=== PATIENT | male | born 1950 | race Caucasian/White ===

== ENCOUNTER 2017-09-02 22:29 | Emergency (ER) | payer MEDICARE ==
[~2017-09-02] VITALS: Ht 180.3 cm; Wt 94.8 kg
[2017-09-02 22:30] VITALS: BP 153/69; PULSE 106; RESP 22; TEMP 99.8; O2SAT 92
[2017-09-02 22:51] VITALS: O2SAT 90
[2017-09-02] MEDS ORDERED: SODIUM CHLOR 0.9% 1000 ML INJ 1,000 ML IV ONE (23:00)
[2017-09-02] MEDS ORDERED: ACETAMINOPHEN 325 MG TAB PO ONE (23:00)
[2017-09-02] MEDS ORDERED: SODIUM CHLORIDE 0.9% FLUSH 10 ML FLUSH IVF PRN (23:00)
[2017-09-02] MEDS ORDERED: methylPREDNISolone SOD SUCC 125 MG/2 ML VIAL IV PUSH ONE (23:00)
[2017-09-02] MEDS: RESP: ALBUTEROL 2.5 MG/IPRATROPIUM 0.5 MG NEB (SCH) INH ×3 (23:01→23:21)
[2017-09-02 23:10] VITALS: O2SAT 91
[2017-09-02 23:15] LABS: AUTOMATED NEUTROPHIL # 5.3 TH/MM3 (1.8-7.7); BASOPHIL # 0.1 TH/MM3 (0-0.2); BASOPHIL % 1.7 % (0.0-2.0); EOSINOPHIL % 0.5 % (0.0-4.0); HEMATOCRIT 40.3 % (39.0-51.0); HEMOGLOBIN 12.8 GM/DL (13.0-17.0); LYMPH % 16.1 % (9.0-44.0); LYMPHOCYTE # 1.2 TH/MM3 (1.0-4.8); MEAN CELL VOLUME 90.6 FL (80.0-100.0); MEAN CORPUSCULAR HEMOGLOBIN 28.8 PG (27.0-34.0); MEAN CORPUSCULAR HGB CONC 31.8 % (32.0-36.0); MEAN PLATELET VOLUME 8.1 FL (7.0-11.0); MONO % 9.3 % (0.0-8.0); MONOCYTE # 0.7 TH/MM3 (0-0.9); NEUT % 72.4 % (16.0-70.0); PLATELET COUNT 117 TH/MM3 (150-450); RED BLOOD COUNT 4.45 MIL/MM3 (4.50-5.90); RED CELL DISTRIBUTION WIDTH 14.7 % (11.6-17.2); WHITE BLOOD COUNT 7.4 TH/MM3 (4.0-11.0)
--- NOTE | 2017-09-02 23:25 | RADRPT ---
EXAM DATE/TIME: 09/02/2017 22:57 [facility] COMPARISON: No previous studies available for comparison. INDICATIONS : Right foot pain. MEDICAL HISTORY : None. SURGICAL HISTORY : None. ENCOUNTER: Initial ACUITY: 1 week PAIN SCORE: 4/10 LOCATION: Right foot FINDINGS: Three view examination of the right foot demonstrates no soft tissue swelling, dislocation, or fractu re. The tarsal bones appear intact. The interphalangeal and metatarsophalangeal joints are intact. The calcaneus is intact. Bony mineralization is normal. CONCLUSION: 1. Negative examination of the foot. Jl Flores MD on September 02, 2017 at 23:22 Board Certified Radiologist. This report was verified electronically.
--- NOTE | 2017-09-02 23:25 | RADRPT ---
EXAM DATE/TIME: 09/02/2017 22:57 [facility] COMPARISON: No previous studies available for comparison. INDICATIONS : Shortness of breath. MEDICAL HISTORY : Emphysema. Asthma SURGICAL HISTORY : Cardiac stent. ENCOUNTER: Initial ACUITY: 1 day PAIN SCORE: 0/10 LOCATION: Bilateral chest FINDINGS: The cardiac silhouette is normal in transverse diameter. There is interstitial disease bilaterally of uncertain chronicity though the appearance is more chronic. No pleural effusions are identified. The re is no evidence of pneumonia. CONCLUSION: 1. Probable pulmonary fibrosis. There is no evidence of pneumonia. Jl Flores MD on September 02, 2017 at 23:21 Board Certified Radiologist. This report was verified electronically.
[2017-09-02 23:27] LABS: BLOOD UREA NITROGEN 11 MG/DL (7-18); GLOMERULAR FILTRATION RATE 67 ML/MIN (>89); GLUCOSE,RANDOM 117 MG/DL (74-106); PROTHROMBIN TIME - PATIENT 10.2 SEC (9.8-11.6); SODIUM (NA) 132 MEQ/L (136-145)
[2017-09-02 23:28] LABS: CHLORIDE 93 MEQ/L (98-107)
[2017-09-03 00:08] LABS: ALKALINE PHOSPHATASE 94 U/L (45-117); TOTAL BILIRUBIN ADULT 0.6 MG/DL (0.2-1.0); TOTAL PROTEIN 8.1 GM/DL (6.4-8.2); TROPONIN I LESS THAN 0.02 NG/ML (0.02-0.05)
[2017-09-03 00:11] LABS: ALBUMIN 3.5 GM/DL (3.4-5.0); ALT (GPT) 20 U/L (12-78); BICARBONATE 28.2 MEQ/L (21.0-32.0); CALCIUM 8.7 MG/DL (8.5-10.1)
[2017-09-03 00:13] LABS: AST (GOT) 33 U/L (15-37)
[2017-09-03 00:21] LABS: BANDS 6 % (0-6); BASOPHILS 2 % (0-2); LYMPHOCYTES 25 % (9-44); MONOCYTES 4 % (0-8); NEUTROPHIL # MANUAL DIFF 5.1 TH/MM3 (1.8-7.7); POLYS (SEG NEUTROPHILS) 63 % (16-70)
[2017-09-03 00:24] VITALS: BP 122/65; PULSE 98; RESP 18; TEMP 98.7; O2SAT 98
[2017-09-03] MEDS ORDERED: PRED50 PO (00:37)
--- NOTE | 2017-09-03 00:37 | PD ---
HPI Chief Complaint: Respiratory Symptoms Time Seen by Provider: 22:40 Travel History International Travel<30 days: No Contact w/Intl Traveler<30days: No Traveled to known affect area: No History of Present Illness HPI Patient is a 67-year-old male who comes in complaining of shortness of breath. Per , they traveled here on the train and he was feeling ill for the day after that, but felt better. He was then with friends who are sick, and he got sick shortly after that. He has history of lung issues, and he seems to be getting more and more short of breath. He has not had any pain. He denies any congestion. He does feel weak. His says she believes he had a fever at home, but they do not have a thermometer. He did not use the albuterol home before coming in. He has not had any chest pain, abdominal pain, nausea or vomiting. He has been coughing. PFSH Past Medical History Asthma: Yes Cardiovascular Problems: Yes (stent, high cholesterol ) High Cholesterol: Yes COPD: Yes (Emphysemia) Diabetes: Yes (type 2) Patient Takes Glucophage: No Diminished Hearing: No Deep Vein Thrombosis: Yes Respiratory: Yes (asthma, emphysema) Immunizations Current: Yes Tetanus Vaccination: > 5 Years Influenza Vaccination: Yes Past Surgical History Cardiac Surgery: Yes (heart stent) Other Surgery: Yes (dvt roter rooter) Social History Alcohol Use: No Tobacco Use: Yes (pack a day) Substance Use: No Allergies-Medications (Allergen,Severity, Reaction): Coded Allergies: No Allergy Information Available (Unverified , 09/02/17) Review of Systems Except as stated in HPI: all other systems reviewed are Neg General / Constitutional: Positive: Fever HENT: No: Headaches, Lightheadedness Cardiovascular: No: Chest Pain or Discomfort Respiratory: Positive: Cough, Shortness of Breath Gastrointestinal: No: Nausea, Vomiting Musculoskeletal: Positive: Myalgias Skin: No Rash, No Change in Pigmentation Neurologic: Positive: Weakness, No: Dizziness Physical Exam Narrative GENERAL: Awake and alert, in no acute distress. SKIN: Focused skin assessment warm/dry. HEAD: Atraumatic. Normocephalic. EYES: Pupils equal and round. No scleral icterus. ENT: Mucous membranes pink and moist. NECK: Trachea midline. No JVD. CARDIOVASCULAR: Regular rate and rhythm. No murmur appreciated. RESPIRATORY: No accessory muscle use. Coarse breath sounds and wheezing throughout both lungs. Breath sounds equal bilaterally. GASTROINTESTINAL: Abdomen soft, non-tender, nondistended. MUSCULOSKELETAL: No obvious deformities. No clubbing. No cyanosis. No edema. NEUROLOGICAL: Awake and alert. No obvious cranial nerve deficits. Motor grossly within normal limits. Normal speech. PSYCHIATRIC: Appropriate mood and affect; insight and judgment normal. Data Data Last Documented VS Vital Signs Date Time Temp Pulse Resp B/P (MAP) Pulse Ox O2 Delivery O2 Flow Rate FiO2 09/03/17 00:24 98.7 98 18 122/65 (84) 98 Nasal Cannula 2.00 Orders Orders Complete Blood Count With Diff (09/02/17 22:46) Comprehensive Metabolic Panel (09/02/17 22:46) B-Type Natriuretic Peptide (09/02/17 22:46) Act Partial Throm Time (Ptt) (09/02/17 22:46) Prothrombin Time / Inr (Pt) (09/02/17 22:46) Troponin I (09/02/17 22:46) Influenzae A/B Antigen (09/02/17 22:46) Iv Access Insert/Monitor (09/02/17 22:46) Electrocardiogram (09/02/17 22:46) Ecg Monitoring (09/02/17 22:46) Oximetry (09/02/17 22:46) Oxygen Administration (09/02/17 22:46) Chest, Single Ap (09/02/17 22:46) Sodium Chloride 0.9% Flush (Ns Flush) (09/02/17 23:00) Methylprednisolone So Succ Inj (Solumedr (09/02/17 23:00) Albuterol-Ipratropium Neb (Duoneb Neb) (09/02/17 23:00) Foot, Complete ([id number]) (09/02/17 ) Sodium Chlor 0.9% 1000 Ml Inj (Ns 1000 M (09/02/17 23:00) Acetaminophen (Tylenol) (09/02/17 23:00) Labs Laboratory Tests Test 09/02/17 23:05 White Blood Count 7.4 TH/MM3 Red Blood Count 4.45 MIL/MM3 Hemoglobin 12.8 GM/DL Hematocrit 40.3 % Mean Corpuscular Volume 90.6 FL Mean Corpuscular Hemoglobin 28.8 PG Mean Corpuscular Hemoglobin Concent 31.8 % Red Cell Distribution Width 14.7 % Platelet Count 117 TH/MM3 Mean Platelet Volume 8.1 FL Neutrophils (%) (Auto) 72.4 % Lymphocytes (%) (Auto) 16.1 % Monocytes (%) (Auto) 9.3 % Eosinophils (%) (Auto) 0.5 % Basophils (%) (Auto) 1.7 % Neutrophils # (Auto) 5.3 TH/MM3 Lymphocytes # (Auto) 1.2 TH/MM3 Monocytes # (Auto) 0.7 TH/MM3 Eosinophils # (Auto) 0.0 TH/MM3 Basophils # (Auto) 0.1 TH/MM3 CBC Comment AUTO DIFF Differential Total Cells Counted 100 Neutrophils % (Manual) 63 % Band Neutrophils % 6 % Lymphocytes % 25 % Monocytes % 4 % Basophils % 2 % Neutrophils # (Manual) 5.1 TH/MM3 Differential Comment FINAL DIFF MANUAL Platelet Estimate LOW Platelet Morphology Comment CLUMPED Red Cell Morphology Comment NORMAL Prothrombin Time 10.2 SEC Prothromb Time International Ratio 1.0 RATIO Activated Partial Thromboplast Time 34.3 SEC Blood Urea Nitrogen 11 MG/DL Creatinine 1.10 MG/DL Random Glucose 117 MG/DL Total Protein 8.1 GM/DL Albumin 3.5 GM/DL Calcium Level 8.7 MG/DL Alkaline Phosphatase 94 U/L Aspartate Amino Transf (AST/SGOT) 33 U/L Alanine Aminotransferase (ALT/SGPT) 20 U/L Total Bilirubin 0.6 MG/DL Sodium Level 132 MEQ/L Potassium Level 4.3 MEQ/L Chloride Level 93 MEQ/L Carbon Dioxide Level 28.2 MEQ/L Anion Gap 11 MEQ/L Estimat Glomerular Filtration Rate 67 ML/MIN Troponin I LESS THAN 0.02 NG/ML B-Type Natriuretic Peptide 10 PG/ML MDM Medical Decision Making Medical Screen Exam Complete: Yes Emergency Medical Condition: Yes Interpretation(s) ECG shows sinus tachycardia at 104, no ST elevation or depression Differential Diagnosis COPD exacerbation versus pneumonia versus influenza Narrative Course Patient is a 67-year-old male who comes in complaining of shortness of breath. Exam shows coarse breath sounds and wheezing throughout both lungs. IV established, labs sent. Patient given 3 duo nebs and a dose of Solu-Medrol. Labs show an elevated white blood cell count. Influenza swab is positive. Chest x-ray shows no acute abnormalities. Patient given IV fluids and Tylenol. He does report feeling better. He is offered admission, but would like to try going home. He is advised drink plenty of fluids, take Tylenol or ibuprofen as needed for pain and fever. Given a prescription for prednisone to start tomorrow. Advised to return immediately for any difficulty breathing or worsening symptoms. He and his are comfortable with this plan. His says his symptoms started Saturday or , which puts him out of the window for Tamiflu. Diagnosis Primary Impression: Influenza Additional Impression: COPD exacerbation Patient Instructions: COPD (Chronic Obstructive Pulmonary Disease) (ED), General Instructions, Influenza (ED) Departure Forms: Tests/Procedures Additional Instructions: Drink plenty of fluids. Take Tylenol or ibuprofen as needed for pain or fever. Use your albuterol or Combivent inhaler as needed for shortness of breath. Take the prednisone starting tomorrow. Return to the ED immediately for any worsening symptoms. Scripts Prednisone (Prednisone) 50 Mg Tab 50 MG PO DAILY for 4 Days, #4 TAB 0 Refills Prov: Bree Ye MD 09/03/17 Disposition: 01 DISCHARGE HOME Condition: Stable Bree Ye MD Sep 03, 2017 00:37
--- NOTE | 2017-09-03 14:04 | EKG ---
Date Performed: 09/02/2017 Time Performed: 23:32:33 PTAGE: 67 years EKG: SINUS TACHYCARDIA ABNORMAL RHYTHM ECG NO PREVIOUS TRACING DOCTOR: Dom Kwong Interpretating Date/Time 09/03/2017 14:02:09
== END 2017-09-03 00:49 | disposition home or self-care (01) ==
LOC: PHED 22:29
DX: J11.1 Influenza due to unidentified influenza virus with other respiratory manifestations (principal); J44.1 Chronic obstructive pulmonary disease with (acute) exacerbation; E11.9 Type 2 diabetes mellitus without complications; E78.00 Pure hypercholesterolemia, unspecified; R06.02 Shortness of breath; R94.31 Abnormal electrocardiogram [ECG] [EKG]
CPT/HCPCS: 71045; 73630; 80053; 83880; 84484; 85007; 85027; 85610; 85730; 87804; 93005; 94640; 94664; 96361; 96374; 99285; J2930; J7030

== ENCOUNTER 2017-09-05 19:17 | Emergency (ER) | payer MEDICARE ==
[~2017-09-05] VITALS: Ht 180.3 cm; Wt 92.5 kg
[~2017-09-05 19:17] MED LIST: PRED50 PO
[2017-09-05 19:57] VITALS: BP 144/65; PULSE 89; RESP 20; TEMP 97.8; O2SAT 92
== END 2017-09-05 20:47 | disposition left against medical advice (07) ==
LOC: PHED 19:17
DX: R06.02 Shortness of breath (principal)
CPT/HCPCS: 99281

== ENCOUNTER 2017-09-07 13:20 | Inpatient (IN) | payer MEDICARE ==
[2017-09-07] VITALS (8 sets, daily range): BP systolic 137–143; BP diastolic 63–70; PULSE 78–104; RESP 18–24; TEMP 97.5–98.3; O2SAT 88–98
[~2017-09-07] VITALS: Ht 180.3 cm; Wt 92.9 kg
[2017-09-07] MEDS ORDERED: OXYC15TA PO (13:37)
[2017-09-07] MEDS ORDERED: JANU50TA8 PO (13:37)
[2017-09-07] MEDS ORDERED: OXYC-103 PO (13:37)
[2017-09-07] MEDS ORDERED: PREG25 PO (13:37)
[2017-09-07] MEDS ORDERED: SODIUM CHLORIDE 0.9% FLUSH 10 ML FLUSH IVF PRN (13:45)
[2017-09-07] MEDS ORDERED: PLAV75TA29 PO (13:56)
[2017-09-07] MEDS ORDERED: ACTO45TA15 PO (13:56)
[2017-09-07] MEDS ORDERED: SITA1TAB2 PO (13:56)
[2017-09-07] MEDS ORDERED: FLUT1INH7 INH (13:57)
[2017-09-07] MEDS ORDERED: SIMV20TA PO (13:58)
--- NOTE | 2017-09-07 14:08 | PD ---
HPI Chief Complaint: Respiratory Symptoms Time Seen by Provider: 13:25 Travel History International Travel<30 days: No Contact w/Intl Traveler<30days: No Traveled to known affect area: No History of Present Illness HPI Patient is a 67-year-old male presents emergency department for evaluation of shortness of breath. Has a history of COPD, recently diagnosed with the flu here, states that she has a home pulse oximeter and when he wakes up early in the morning his sats are 83 and he struggles to keep him above 90. He is not on home oxygen. He is just finished a steroid regimen prescribed and his last ER visit. He states he tried to come here couple of days ago but the wait was too long so he left without being seen. No fevers endorses a wet cough which she is not able to produce sputum with., States symptoms are moderate, gradually worsening, context above associated signs symptoms as above. Patient does have a recent history of a long train ride from the [facility] to here. PFSH Past Medical History Hx Anticoagulant Therapy: Yes Asthma: Yes Cardiovascular Problems: Yes (STENT) High Cholesterol: Yes COPD: Yes (Emphysemia) Diabetes: Yes (type 2) Patient Takes Glucophage: No Diminished Hearing: No Deep Vein Thrombosis: Yes Respiratory: Yes (COPD) Immunizations Current: Yes Past Surgical History Cardiac Surgery: Yes (heart stent) Other Surgery: Yes (dvt roter rooter) Social History Alcohol Use: No Tobacco Use: Yes (pack a day) Substance Use: No Allergies-Medications (Allergen,Severity, Reaction): Coded Allergies: morphine (Verified Allergy, Severe, Shortness of Breath, 09/07/17) Reported Meds & Prescriptions Reported Meds & Active Scripts Active Reported Simvastatin 40 Mg Tab 40 Mg PO HS Altace (Ramipril) 5 Mg Cap 5 Mg PO DAILY Aspirin 325 Mg Tab 325 Mg PO DAILY Proair Hfa 8.5 GM Inh (Albuterol Sulfate) 90 Mcg/Act Aer 2 Puff INH Q4-6H PRN 108 mcg/actuation Cymbalta DR (Duloxetine HCl) 60 Mg Capdr 60 Mg PO DAILY Cymbalta DR (Duloxetine HCl) 30 Mg Capdr 30 Mg PO DAILY@1600 Breo Ellipta Inh (Fluticasone/Vilanterol) 200-25 Mcg/Act Inh 1 Puff INH DAILY Use daily at the same time. Januvia (Sitagliptin Phosphate) 100 Mg Tab 100 Mg PO DAILY Actos (Pioglitazone HCl) 45 Mg Tab 45 Mg PO DAILY Plavix (Clopidogrel Bisulfate) 75 Mg Tab 75 Mg PO DAILY Lyrica (Pregabalin) 25 Mg Cap 100 PO QID Janumet (Sitagliptin-Metformin) 50-1,000 Mg Tab 1 Tab PO BID Oxycontin (Oxycodone HCl) 10 Mg Tab 20 PO Q12HR Oxycodone (Oxycodone HCl) 15 Mg Tab 30 PO Q4H PRN Review of Systems Except as stated in HPI: all other systems reviewed are Neg Physical Exam Narrative GENERAL: [Well-developed well-nourished, mildly tachypneic. Somnolent. SKIN: Focused skin assessment warm/dry. HEAD: Atraumatic. Normocephalic. EYES: Pupils equal and round. No scleral icterus. No injection or drainage. ENT: No nasal bleeding or discharge. Mucous membranes pink and moist. TMs clear bilateral, CLEAR moist. NECK: Trachea midline. No JVD. CARDIOVASCULAR: Regular rate and rhythm. No murmur appreciated. RESPIRATORY: No accessory muscle use. Clear to auscultation. Breath sounds equal bilaterally. GASTROINTESTINAL: Abdomen soft, non-tender, nondistended. Hepatic and splenic margins not palpable. MUSCULOSKELETAL: No obvious deformities. No clubbing. No cyanosis. No edema. NEUROLOGICAL: Awake and alert. No obvious cranial nerve deficits. Motor grossly within normal limits. Normal speech. PSYCHIATRIC: Appropriate mood and affect; insight and judgment normal. Data Data Last Documented VS Vital Signs Date Time Temp Pulse Resp B/P (MAP) Pulse Ox O2 Delivery O2 Flow Rate FiO2 09/07/17 14:08 95 Nasal Cannula 4.00 09/07/17 13:32 98.2 93 20 143/69 (93) Orders Orders Electrocardiogram (09/07/17 13:36) Basic Metabolic Panel (Bmp) (09/07/17 13:36) Complete Blood Count With Diff (09/07/17 13:36) Magnesium (Mg) (09/07/17 13:36) Prothrombin Time / Inr (Pt) (09/07/17 13:36) Act Partial Throm Time (Ptt) (09/07/17 13:36) Troponin I (09/07/17 13:36) Ecg Monitoring (09/07/17 13:36) Iv Access Insert/Monitor (09/07/17 13:36) Oximetry (09/07/17 13:36) Oxygen Administration (09/07/17 13:36) Sodium Chloride 0.9% Flush (Ns Flush) (09/07/17 13:45) Ct Pulmonary Angiogram (09/07/17 13:36) Ceftriaxone Inj (Rocephin Inj) (09/07/17 14:45) Azithromycin Inj (Zithromax Inj) (09/07/17 14:45) Methylprednisolone So Succ Inj (Solumedr (09/07/17 14:45) Albuterol-Ipratropium Neb (Duoneb Neb) (09/07/17 14:45) Admit Order (Ed Use Only) (09/07/17 ) Iohexol 350 Inj (Omnipaque 350 Inj) (09/07/17 15:00) Labs Laboratory Tests Test 09/07/17 13:55 White Blood Count 13.3 TH/MM3 Red Blood Count 4.42 MIL/MM3 Hemoglobin 13.0 GM/DL Hematocrit 39.7 % Mean Corpuscular Volume 89.7 FL Mean Corpuscular Hemoglobin 29.5 PG Mean Corpuscular Hemoglobin Concent 32.9 % Red Cell Distribution Width 15.0 % Platelet Count 179 TH/MM3 Mean Platelet Volume 7.9 FL Neutrophils (%) (Auto) 64.1 % Lymphocytes (%) (Auto) 26.9 % Monocytes (%) (Auto) 8.2 % Eosinophils (%) (Auto) 0.3 % Basophils (%) (Auto) 0.5 % Neutrophils # (Auto) 8.5 TH/MM3 Lymphocytes # (Auto) 3.6 TH/MM3 Monocytes # (Auto) 1.1 TH/MM3 Eosinophils # (Auto) 0.0 TH/MM3 Basophils # (Auto) 0.1 TH/MM3 CBC Comment DIFF FINAL Differential Comment Prothrombin Time 9.6 SEC Prothromb Time International Ratio 0.9 RATIO Activated Partial Thromboplast Time 25.6 SEC Blood Urea Nitrogen 15 MG/DL Creatinine 1.00 MG/DL Random Glucose 102 MG/DL Calcium Level 8.9 MG/DL Magnesium Level 2.5 MG/DL Sodium Level 137 MEQ/L Potassium Level 3.5 MEQ/L Chloride Level 100 MEQ/L Carbon Dioxide Level 29.8 MEQ/L Anion Gap 7 MEQ/L Estimat Glomerular Filtration Rate 75 ML/MIN Troponin I LESS THAN 0.02 NG/ML MDM Medical Decision Making Medical Screen Exam Complete: Yes Emergency Medical Condition: Yes Differential Diagnosis Pneumonia, bronchitis, COPD exacerbation, PE. Narrative Course Patient roomed emergency department, CT scan of his chest indicated to rule out possible occult PE, negative for PE but does show some focal consolidation. Started on Rocephin and azithromycin for community-acquired pneumonia. Also found to be hypoxic on arrival with sats of 88 on room air. Doing well on nasal cannula. Elevated white blood cell count with a normal differential consistent with recent steroid regimen. Will be admitted, discussed with Dr. Elias. Diagnosis Primary Impression: Acute respiratory failure with hypoxia Additional Impression: Pneumonia Admitting Information Admitting Physician Requests: Admit Condition: Stable Geovanny Celis MD Sep 07, 2017 14:08
[2017-09-07 14:15] LABS: AUTOMATED NEUTROPHIL # 8.5 TH/MM3 (1.8-7.7); BASOPHIL # 0.1 TH/MM3 (0-0.2); BASOPHIL % 0.5 % (0.0-2.0); EOSINOPHIL % 0.3 % (0.0-4.0); HEMATOCRIT 39.7 % (39.0-51.0); LYMPH % 26.9 % (9.0-44.0); LYMPHOCYTE # 3.6 TH/MM3 (1.0-4.8); MEAN CELL VOLUME 89.7 FL (80.0-100.0); MEAN CORPUSCULAR HEMOGLOBIN 29.5 PG (27.0-34.0); MEAN CORPUSCULAR HGB CONC 32.9 % (32.0-36.0); MEAN PLATELET VOLUME 7.9 FL (7.0-11.0); MONO % 8.2 % (0.0-8.0); MONOCYTE # 1.1 TH/MM3 (0-0.9); NEUT % 64.1 % (16.0-70.0); PLATELET COUNT 179 TH/MM3 (150-450); RED BLOOD COUNT 4.42 MIL/MM3 (4.50-5.90); WHITE BLOOD COUNT 13.3 TH/MM3 (4.0-11.0)
[2017-09-07 14:22] LABS: CHLORIDE 100 MEQ/L (98-107); SODIUM (NA) 137 MEQ/L (136-145)
[2017-09-07 14:24] LABS: CALCIUM 8.9 MG/DL (8.5-10.1)
[2017-09-07 14:25] LABS: BICARBONATE 29.8 MEQ/L (21.0-32.0); BLOOD UREA NITROGEN 15 MG/DL (7-18); GLUCOSE,RANDOM 102 MG/DL (74-106); MAGNESIUM 2.5 MG/DL (1.5-2.5)
[2017-09-07 14:27] LABS: INTERNATIONAL NORMALIZED RATIO 0.9 RATIO; PROTHROMBIN TIME - PATIENT 9.6 SEC (9.8-11.6)
[2017-09-07 14:28] LABS: GLOMERULAR FILTRATION RATE 75 ML/MIN (>89)
[2017-09-07 14:33] LABS: TROPONIN I LESS THAN 0.02 NG/ML (0.02-0.05)
--- NOTE | 2017-09-07 14:38 | RADRPT ---
EXAM DATE/TIME: 09/07/2017 14:12 [facility] COMPARISON: No previous studies available for comparison. INDICATIONS : SOB, Evaluate for PE. IV CONTRAST: 100 cc Omnipaque 350 (iohexol) IV RADIATION DOSE: 17.52 CTDIvol (mGy) MEDICAL HISTORY : Cardiovascular disease. Chronic obstructive pulmonary disease. DVT, Diabetes SURGICAL HISTORY : Stents ENCOUNTER: Initial ACUITY: 2 months PAIN SCALE: 0/10 LOCATION: chest TECHNIQUE: Volumetric scanning of the chest was performed using a pulmonary embolism protocol MIP images were re constructed. Using automated exposure control and adjustment of the mA and/or kV according to patien t size, radiation dose was kept as low as reasonably achievable to obtain optimal diagnostic quality images. DICOM format image data is available electronically for review and comparison. Follow-up recommendations for detected pulmonary nodules are based at a minimum on nodule size and pa tient risk factors according to Fleischner Society Guidelines. FINDINGS: PULMONARY ARTERIES: No filling defects are seen in the pulmonary arteries through the segmental level. LUNGS: There is no pneumothorax . There is a 1.4 x 1.3 cm spiculated mass in the posterior right middle lobe . There are additiona smaller l soft tissue masslike areas of density in the lingula and right lower lobe as well as the left lower lobe. There is a patchy area of infiltrate in the superior segment of the left lower lobe. There is underlying emphysema. PLEURAE: There is no pleural thickening or pleural effusion. MEDIASTINUM: There is good visualization of the great vessels of the middle mediastinum. There is mild pretracheal and adenopathy. Mild coronary artery calcifications are noted. There is a small amount of pericardia l fluid present. MUSCULOSKELETAL: Within normal limits for patient age. MISCELLANEOUS: The visualized upper abdominal organs demonstrate no acute abnormality. CONCLUSION: 1. Spiculated 1.4 cm mass in the right middle lobe as well as additional small masslike areas of opac ity of concern for metastatic disease. 2. Focal area of infiltrate in the left lower lobe which could indicate pneumonia. 3. Underlying emphysema. 4. No evidence of pulmonary embolism. Hunter Lorenzo MD on September 07, 2017 at 14:31 Board Certified Radiologist. This report was verified electronically.
[2017-09-07] MEDS ORDERED: cefTRIAXone INJ 1,000 MG in SODIUM CHLORIDE 0.9% INJ 100 ML IV ONE (14:45)
[2017-09-07] MEDS ORDERED: RESP: ALBUTEROL 2.5 MG/IPRATROPIUM 0.5 MG NEB (SCH) NEB ONE (14:45)
[2017-09-07] MEDS ORDERED: methylPREDNISolone SOD SUCC 125 MG/2 ML VIAL IV PUSH ONE (14:45)
[2017-09-07] MEDS ORDERED: AZITHROMYCIN INJ 500 MG in SODIUM CHLOR 0.9% 250 ML INJ 250 ML IV ONE (14:45)
[2017-09-07] MEDS ORDERED: IOHEXOL 350 MG/ML 10 ML VIAL (for RAD DIAG) IVCONTRAST ONE (15:00)
[2017-09-07] MEDS ORDERED: SENNOSIDES 8.6 MG TAB PO PRN (16:15)
[2017-09-07] MEDS ORDERED: SODIUM CHLORIDE 0.9% FLUSH 10 ML FLUSH IV FLUSH PRN (16:15)
[2017-09-07] MEDS ORDERED: ONDANSETRON HCL 4 MG/2 ML VIAL IVP PRN (16:15)
[2017-09-07] MEDS ORDERED: BISACODYL 10 MG SUPP RECTAL PRN (16:15)
[2017-09-07] MEDS ORDERED: ACETAMINOPHEN 325 MG TAB PO PRN (16:15)
[2017-09-07] MEDS ORDERED: NALOXONE HCL 0.4 MG/ML AMP IV PUSH PRN (16:15)
[2017-09-07] MEDS ORDERED: MAGNESIUM HYDROXIDE SUSP 30 ML CUP PO PRN (16:15)
--- NOTE | 2017-09-07 16:32 | HHI.HP ---
[facility]Staff Admission Diagnosis Hypoxic Respiratory failure, Pneumonia Diagnoses: (1) COPD with acute exacerbation Diagnosis: Principal Chief Complaint: Shortness of breath Travel History International Travel<30 Days: No Contact w/Intl Traveler <30 Da: No Traveled to Known Affected Are: No Sepsis Criteria SIRS Criteria (2 or more): Heart rate over 90, WBC > 22632, < 4000 or > 10% bands Sepsis Criteria (SIRS+source): Infect source susp/known Criteria Outcome: Meets sepsis criteria History of Present Illness Written by Bree Jay, acting as scribe for Dr. Elias on 09/07/17 at 16:20. This is a 67-year-old male patient with a known medical history of hypertension , diabetes, COPD, and PVD who presented to the ED with worsening shortness of breath. Patient presented to the ED five days ago for similar symptoms, found to have the flu, but was out of the window for Tamiflu, found to be stable and sent home with PO steroids. Since that time patient has complained of continuing worsening shortness of breath and generalized fatigue. Admits to nonproductive cough. Denies any fevers, chills, chest pain, abdominal pain, nausea, vomiting, diarrhea or dysuria. Does not use home O2. Has been requiring increased use of home inhaler. Patient is visiting here from [place] with his and plans to stay here for a couple months. Does admit to current tobacco use, 1 ppd cigarettes. Does not follow with a research lab assistant. Review of Systems Constitutional: DENIES: Fever, Chills Respiratory: COMPLAINS OF: Cough, Wheezing, Shortness of breath, DENIES: Sputum production Cardiovascular: DENIES: Chest pain Gastrointestinal: DENIES: Abdominal pain, Black stools, Bloody stools, Constipation, Diarrhea, Nausea, Vomiting Musculoskeletal: DENIES: Joint pain Hematologic/lymphatic: DENIES: Bruising Psychiatric: DENIES: Anxiety Except as stated in HPI: all other systems reviewed are Neg Past Family Social History Past Medical History COPD Diabetes Hypertension Asthma CAD with cardiac stent placement PVD Past Surgical History Cardiac stent placement History of lower right extremity balloon arthroplasty Reported Medications Active Reported Simvastatin 20 Mg Tab 20 Mg PO DAILY Breo Ellipta Inh (Fluticasone/Vilanterol) 200-25 Mcg/Act Inh 1 Puff INH DAILY Use daily at the same time. Januvia (Sitagliptin Phosphate) 100 Mg Tab 100 Mg PO DAILY Actos (Pioglitazone HCl) 45 Mg Tab 45 Mg PO DAILY Plavix (Clopidogrel Bisulfate) 75 Mg Tab 75 Mg PO DAILY Lyrica (Pregabalin) 25 Mg Cap 100 PO QID Janumet (Sitagliptin-Metformin) 50-1,000 Mg Tab 1 Tab PO BID Oxycontin (Oxycodone HCl) 10 Mg Tab 20 PO Q12HR Oxycodone (Oxycodone HCl) 15 Mg Tab 30 PO Q4H PRN Allergies: Coded Allergies: morphine (Verified Allergy, Severe, Shortness of Breath, 09/07/17) Active Ordered Medications Current Medications Medications (Trade) Dose Ordered Sig/Hope Route Start Time Stop Time Status Last Admin (NS Flush) 2 ml UNSCH PRN IVF 09/07/17 13:45 09/07/17 15:04 Family History Maternal medical history significant for emphysema. Father was an alcoholic. Social History Admits to smoking one pack per day cigarettes. Denies any alcohol use. Denies any illicit drug use. Physical Exam Vital Signs Vital Signs Date Time Temp Pulse Resp B/P (MAP) Pulse Ox O2 Delivery O2 Flow Rate FiO2 09/07/17 15:58 09/07/17 15:24 94 Nasal Cannula 3.00 09/07/17 15:24 78 18 141/70 (93) 94 Nasal Cannula 3.00 09/07/17 14:08 95 Nasal Cannula 4.00 09/07/17 13:32 98.2 93 20 143/69 (93) 94 Nasal Cannula 4.00 09/07/17 13:25 98.2 104 24 139/63 (88) 88 Physical Exam GENERAL: This is a well-nourished, well-developed patient, sitting up in bed on supplemental O2 apparent shortness of breath. SKIN: No rashes, ecchymoses or lesions. Warm and dry. HEAD: Atraumatic. Normocephalic. EYES: Pupils equal round and reactive. Extraocular motions intact. No scleral icterus. No injection or drainage. ENT: Nose without bleeding. Throat without erythema, tonsillar hypertrophy or exudate. Uvula midline. Airway patent. NECK: Trachea midline. No JVD. Supple. CARDIOVASCULAR: Regular rate and rhythm without murmurs, gallops, or rubs. RESPIRATORY: Diffuse rhonchi throughout. Breath sounds equal bilaterally. No wheezes, rales. GASTROINTESTINAL: Abdomen soft, non-tender, nondistended. No guarding. MUSCULOSKELETAL: Extremities without clubbing, cyanosis, or edema. No joint tenderness, effusion, or edema noted. NEUROLOGICAL: Awake and alert. Cranial nerves II through XII intact. Motor and sensory grossly within normal limits. Five out of 5 muscle strength in all muscle groups. Normal speech. Laboratory Laboratory Tests Test 09/07/17 13:55 White Blood Count 13.3 Red Blood Count 4.42 Hemoglobin 13.0 Hematocrit 39.7 Mean Corpuscular Volume 89.7 Mean Corpuscular Hemoglobin 29.5 Mean Corpuscular Hemoglobin Concent 32.9 Red Cell Distribution Width 15.0 Platelet Count 179 Mean Platelet Volume 7.9 Neutrophils (%) (Auto) 64.1 Lymphocytes (%) (Auto) 26.9 Monocytes (%) (Auto) 8.2 Eosinophils (%) (Auto) 0.3 Basophils (%) (Auto) 0.5 Neutrophils # (Auto) 8.5 Lymphocytes # (Auto) 3.6 Monocytes # (Auto) 1.1 Eosinophils # (Auto) 0.0 Basophils # (Auto) 0.1 CBC Comment DIFF FINAL Differential Comment Prothrombin Time 9.6 Prothromb Time International Ratio 0.9 Activated Partial Thromboplast Time 25.6 Blood Urea Nitrogen 15 Creatinine 1.00 Random Glucose 102 Calcium Level 8.9 Magnesium Level 2.5 Sodium Level 137 Potassium Level 3.5 Chloride Level 100 Carbon Dioxide Level 29.8 Anion Gap 7 Estimat Glomerular Filtration Rate 75 Troponin I LESS THAN 0.02 Result Diagram: 09/07/17 1355 09/07/[address] Angiography 09/07/17 1336 Signed Impressions: Service Date/Time: Thursday, September 07, 2017 14:12 - CONCLUSION: 1. Spiculated 1.4 cm mass in the right middle lobe as well as additional small masslike areas of opacity of concern for metastatic disease. 2. Focal area of infiltrate in the left lower lobe which could indicate pneumonia. 3. Underlying emphysema. 4. No evidence of pulmonary embolism. Hunter Lorenzo MD Septic Shock Reassessment Septic shock perfusion: reassessment completed Caprini VTE Risk Assessment Caprini VTE Risk Assessment: Mod/High Risk (score >= 2) Caprini Risk Assessment Model Point Value = 1 Point Value = 2 Point Value = 3 Point Value = 5 Age 41-60 Minor surgery BMI > 25 kg/m2 Swollen legs Varicose veins or History of unexplained or recurrent spontaneous Oral contraceptives or hormone replacement Sepsis (< 1 month) Serious lung disease, including pneumonia (< 1 month) Abnormal pulmonary function Acute myocardial infarction Congestive heart failure (< 1 month) History of inflammatory bowel disease Medical patient at bed rest Age 61-74 Arthroscopic surgery Major open surgery (> 45 min) Laparoscopic surgery (> 45 min) Malignancy Confined to bed (> 72 hours) Immobilizing plaster cast Central venous access Age >= 75 History of VTE Family history of VTE Factor V Leiden Prothrombin [id number] Lupus anticoagulant Anticardiolipin antibodies Elevated serum homocysteine Heparin-induced thrombocytopenia Other congenital or acquired thrombophilia Stroke (< 1 month) Elective arthroplasty Hip, pelvis, or leg fracture Acute spinal cord injury (< 1 month) Prophylaxis Regimen Total Risk Factor Score Risk Level Prophylaxis Regimen 0-1 Low Early ambulation 2 Moderate Order ONE of the following: *Sequential Compression Device (SCD) *Heparin 5000 units SQ BID 3-4 Higher Order ONE of the following medications: *Heparin 5000 units SQ TID *Enoxaparin/Lovenox 40 mg SQ daily (WT < 150 kg, CrCl > 30 mL/min) *Enoxaparin/Lovenox 30 mg SQ daily (WT < 150 kg, CrCl > 10-29 mL/min) *Enoxaparin/Lovenox 30 mg SQ BID (WT < 150 kg, CrCl > 30 mL/min) AND/OR *Sequential Compression Device (SCD) 5 or more Highest Order ONE of the following medications: *Heparin 5000 units SQ TID (Preferred with Epidurals) *Enoxaparin/Lovenox 40 mg SQ daily (WT < 150 kg, CrCl > 30 mL/min) *Enoxaparin/Lovenox 30 mg SQ daily (WT < 150 kg, CrCl > 10-29 mL/min) *Enoxaparin/Lovenox 30 mg SQ BID (WT < 150 kg, CrCl > 30 mL/min) AND *Sequential Compression Device (SCD) Assessment and Plan Problem List: (1) COPD with acute exacerbation ICD Code: J44.1 - Chronic obstructive pulmonary disease with (acute) exacerbation Plan: Meet Sepsis criteria (tachycardia, leukocytosis) with source of left lower lobe pneumonia. Lactic acid and blood cultures pending. CTA reviewed showing 1.4 cm mass in the right middle lobe as well as additional small masslike areas of opacity of concern for metastatic disease. Focal area of infiltrate left lower lobe which could indicate pneumonia. Emphysema. DuoNeb scheduled and when necessary for wheezing. Continue home Breo. Will start on IV steroids. Continue IV Azithromycin and Ceftriaxone. Start IVF. Supplemental O2 as needed. CBC and BMP reviewed, WBC 13.3 likely steroid induced. Repeat labs in am, follow. Continue cardiac telemetry for now, monitor for arrhythmias. (2) Community acquired pneumonia ICD Code: J18.9 - Pneumonia, unspecified organism Plan: CTA showing focal area of infiltrate in the left lower lobe which could indicate pneumonia. Patient placed on azithromycin and ceftriaxone. Monitor CBC. White blood cells mildly elevated, PB due to steroid use at home. Supplemental O2 as needed. (3) CAD (coronary artery disease) ICD Code: I25.10 - Atherosclerotic heart disease of elem coronary artery without angina pectoris Plan: CAD with previous cardiac stent placement. Continue home Plavix. (4) Chronic back pain ICD Code: M54.9 - Dorsalgia, unspecified; G89.29 - Other chronic pain Plan: Continue home Oxycodone PRN per pain scale. (5) GERD (gastroesophageal reflux disease) ICD Code: K21.9 - Gastro-esophageal reflux disease without esophagitis Plan: Continue home Pepcid. DVT prophylaxis: SCDs. Physician Certification 2 Midnight Certification Type: Admission for Inpatient Services Order for Inpatient Services The services are ordered in accordance with Medicare regulations or non- Medicare payer requirements, as applicable. In the case of services not specified as inpatient-only, they are appropriately provided as inpatient services in accordance with the 2-midnight benchmark. Estimated LOS (days): 3 3 days is the estimated time the patient will need to remain in the hospital, assuming treatment plan goals are met and no additional complications. Post-Hospital Plan: Not yet determined Medical Decision Making Impression and Plan This note was transcribed by [email or web address] [[email or web address]]. I, Dr. Georgia Elias personally performed the history, physical exam, and medical decision making; and confirmed the accuracy of the information in the transcribed note. Seen at bed side, care planning CODE STATUS discussed with patient Care plan discussed with patient and nursing team Authenticated by Dr. Georgia Elias on 09/07/17 at 17:35. Bree Jay Sep 07, 2017 16:32 Georgia Elias MD Sep 07, 2017 17:36
[2017-09-07] MEDS ORDERED: OXYBUTYNIN CHLORIDE 5 MG TAB PO PRN ×2 (17:00→17:30)
[2017-09-07] MEDS ORDERED: RESP: ALBUTEROL 2.5 MG/IPRATROPIUM 0.5 MG NEB (PRN) NEB (17:00)
[2017-09-07] MEDS: SODIUM CHLOR 0.9% 1000 ML INJ 1,000 ML IV SCH (17:08)
[2017-09-07] MEDS ORDERED: CYMB30CA PO (17:58)
[2017-09-07] MEDS ORDERED: CYMB60CA PO (17:58)
[2017-09-07] MEDS ORDERED: ASPI-183 PO (18:02)
[2017-09-07] MEDS ORDERED: ALBUAER3 INH (18:02)
[2017-09-07] MEDS ORDERED: ALTA5CAP4 PO (18:03)
[2017-09-07] MEDS ORDERED: SIMV40TA PO (18:05)
[2017-09-07 18:46] LABS: LACTIC ACID SEPSIS PROTOCOL 2.3 mmol/L (0.4-2.0)
[2017-09-07] MEDS: RESP: ALBUTEROL 2.5 MG/IPRATROPIUM 0.5 MG NEB (SCH) NEB (19:28)
[2017-09-07] MEDS: DOCUSATE SODIUM 50 MG/SENNA 8.6 MG TAB PO SCH (20:46)
[2017-09-07] MEDS: FAMOTIDINE 20 MG TAB PO SCH (20:46)
[2017-09-07] MEDS: methylPREDNISolone SOD SUCC 125 MG/2 ML VIAL IV PUSH SCH (20:46)
[2017-09-07] MEDS: SODIUM CHLORIDE 0.9% FLUSH 10 ML FLUSH IV FLUSH SCH (20:48)
[2017-09-07] MEDS ORDERED: oxyCODONE HCL 20 MG CONTROLLED RELEASE TAB PO SCH (21:00)
[2017-09-08 01:26] VITALS: BP 179/88; PULSE 71; RESP 20; TEMP 97.6; O2SAT 94
[2017-09-08] MEDS: methylPREDNISolone SOD SUCC 125 MG/2 ML VIAL IV PUSH SCH (03:52)
[2017-09-08] MEDS: SODIUM CHLOR 0.9% 1000 ML INJ 1,000 ML IV SCH (03:53)
[2017-09-08 04:58] VITALS: BP 152/72; PULSE 68; RESP 20; TEMP 97; O2SAT 92
[2017-09-08] MEDS: RESP: ALBUTEROL 2.5 MG/IPRATROPIUM 0.5 MG NEB (SCH) NEB ×2 (07:23→11:11)
[2017-09-08 07:24] VITALS: O2SAT 93
[2017-09-08 08:00] VITALS: BP 153/62; PULSE 86; RESP 12; TEMP 98; O2SAT 94
[2017-09-08 08:02] LABS: AUTOMATED NEUTROPHIL # 9.1 TH/MM3 (1.8-7.7); BASOPHIL % 0.3 % (0.0-2.0); EOSINOPHIL % 0.2 % (0.0-4.0); HEMATOCRIT 36.1 % (39.0-51.0); LYMPH % 15.5 % (9.0-44.0); LYMPHOCYTE # 1.7 TH/MM3 (1.0-4.8); MEAN CELL VOLUME 89.7 FL (80.0-100.0); MEAN CORPUSCULAR HEMOGLOBIN 29.8 PG (27.0-34.0); MEAN CORPUSCULAR HGB CONC 33.2 % (32.0-36.0); MEAN PLATELET VOLUME 8.1 FL (7.0-11.0); MONO % 1.7 % (0.0-8.0); MONOCYTE # 0.2 TH/MM3 (0-0.9); NEUT % 82.3 % (16.0-70.0); PLATELET COUNT 160 TH/MM3 (150-450); RED BLOOD COUNT 4.03 MIL/MM3 (4.50-5.90); RED CELL DISTRIBUTION WIDTH 14.7 % (11.6-17.2)
[2017-09-08 08:07] LABS: BICARBONATE 28.8 MEQ/L (21.0-32.0); CALCIUM 8.4 MG/DL (8.5-10.1); CREATININE 0.95 MG/DL (0.60-1.30)
[2017-09-08] MEDS ORDERED: PRED20 PO (08:39)
[2017-09-08] MEDS ORDERED: OXYGENTANK NAS.CANULA (08:39)
[2017-09-08] MEDS ORDERED: DOXY100C PO (08:39)
--- NOTE | 2017-09-08 08:40 | HHI.DCPOC ---
Discharge Care Plan Diagnosis: (1) COPD with acute exacerbation Goals to Promote Your Health * To prevent worsening of your condition and complications * To maintain your health at the optimal level Directions to Meet Your Goals Take your medications as prescribed Follow your dietary instruction Follow activity as directed Keep your appointments as scheduled Take your immunizations and boosters as scheduled If your symptoms worsen call your PCP, if no PCP go to Urgent Care Center or Emergency Room Smoking is Dangerous to Your Health. Avoid second hand smoke Call the 24-hour hour crisis hotline for domestic abuse at Georgia Elias MD Sep 08, 2017 08:40
--- NOTE | 2017-09-08 08:43 | HHI.DS ---
Discharge Summary Admission Date Sep 07, 2017 at 15:22 Discharge Date: Sep 08, 2017 Admitting Diagnosis Hypoxic Respiratory failure, Pneumonia (1) COPD with acute exacerbation ICD Code: J44.1 - Chronic obstructive pulmonary disease with (acute) exacerbation (2) Community acquired pneumonia ICD Code: J18.9 - Pneumonia, unspecified organism (3) CAD (coronary artery disease) ICD Code: I25.10 - Atherosclerotic heart disease of ute coronary artery without angina pectoris (4) Chronic back pain ICD Code: M54.9 - Dorsalgia, unspecified; G89.29 - Other chronic pain (5) GERD (gastroesophageal reflux disease) ICD Code: K21.9 - Gastro-esophageal reflux disease without esophagitis Procedures none Brief History - From Admission Written by Bree Jay, acting as scribe for Dr. Elias on 09/07/17 at 16:20. This is a 67-year-old male patient with a known medical history of hypertension , diabetes, COPD, and PVD who presented to the ED with worsening shortness of breath. Patient presented to the ED five days ago for similar symptoms, found to have the flu, but was out of the window for Tamiflu, found to be stable and sent home with PO steroids. Since that time patient has complained of continuing worsening shortness of breath and generalized fatigue. Admits to nonproductive cough. Denies any fevers, chills, chest pain, abdominal pain, nausea, vomiting, diarrhea or dysuria. Does not use home O2. Has been requiring increased use of home inhaler. Patient is visiting here from [place] with his and plans to stay here for a couple months. Does admit to current tobacco use, 1 ppd cigarettes. Does not follow with a loading unit operator seating. CBC/BMP: 09/08/17 0710 09/08/17 0710 Significant Findings Laboratory Tests Test 09/07/17 13:55 09/07/17 18:05 09/07/17 20:35 09/08/17 07:10 White Blood Count 13.3 TH/MM3 (4.0-11.0) Red Blood Count 4.42 MIL/MM3 (4.50-5.90) 4.03 MIL/MM3 (4.50-5.90) Monocytes (%) (Auto) 8.2 % (0.0-8.0) Neutrophils # (Auto) 8.5 TH/MM3 (1.8-7.7) 9.1 TH/MM3 (1.8-7.7) Monocytes # (Auto) 1.1 TH/MM3 (0-0.9) Prothrombin Time 9.6 SEC (9.8-11.6) Estimat Glomerular Filtration Rate 75 ML/MIN (>89) 79 ML/MIN (>89) Troponin I LESS THAN 0.02 NG/ML Lactic Acid Level 2.3 mmol/L (0.4-2.0) Hemoglobin 12.0 GM/DL (13.0-17.0) Hematocrit 36.1 % (39.0-51.0) Neutrophils (%) (Auto) 82.3 % (16.0-70.0) Random Glucose 218 MG/DL (74-106) Calcium Level 8.4 MG/DL (8.5-10.1) Imaging Last Impressions CT Angiography 09/07/17 1336 Signed Impressions: Service Date/Time: Thursday, September 07, 2017 14:12 - CONCLUSION: 1. Spiculated 1.4 cm mass in the right middle lobe as well as additional small masslike areas of opacity of concern for metastatic disease. 2. Focal area of infiltrate in the left lower lobe which could indicate pneumonia. 3. Underlying emphysema. 4. No evidence of pulmonary embolism. Hunter Lorenzo MD PE at Discharge GENERAL: This is a well-nourished, well-developed patient, in no apparent distress. CARDIOVASCULAR: Regular rate and rhythm without murmurs, gallops, or rubs. RESPIRATORY: Clear to auscultation. Breath sounds equal bilaterally. No wheezes , rales, or rhonchi. GASTROINTESTINAL: Abdomen soft, non-tender, nondistended. Normal active bowel sounds MUSCULOSKELETAL: Extremities without clubbing, cyanosis, or edema. NEURO: Alert & Oriented x4 to person, place, time, situation. Moves all ext x4 Hospital Course Was seen and treated for COPD exacerbation post influenza. Patient actually was quite hypoxemic and required oxygen at discharge. He was given IV steroids and nebulized bronchodilators. Patient was also given antibiotics. Patient education was provided Pt Condition on Discharge: Good Discharge Disposition: Discharge Home Discharge Time: <= 30 minutes Discharge Instructions DIET: Follow Instructions for: As Tolerated, No Restrictions Activities you can perform: Regular-No Restrictions Follow up Referrals: PCP Follow-up - 1 Week New Medications: Doxycycline Hyclate (Doxycycline Hyclate) 100 Mg Cap 100 MG PO BID for Infection, #20 CAP 0 Refills Oxygen tank (Oxygen tank) 1 Ea Tank LITER RUPINDER.CANULA CONTINUOUS for HYPOXEMIA PREVENTION, #1 Oxygen Concentrator Portable Gaseous 2 L/min via Nasal Cannula Continuous For 99 months [id number] Prednisone (Prednisone) 20 Mg Tab 20 MG PO DIRECTED for Inflammation, #15 TAB 0 Refills 20 MG twice a day x 3 days, then 20 MG daily x 3 days, then 10 MG daily x 3 days Continued Medications: Albuterol 8.5 GM Inh (Proair Hfa 8.5 GM Inh) 90 Mcg/Act Aer 2 PUFF INH Q4-6H PRN for SHORTNESS OF BREATH, #1 INHALER 0 Refills 108 mcg/actuation Aspirin (Aspirin) 325 Mg Tab 325 MG PO DAILY, #30 TAB 0 Refills Clopidogrel (Plavix) 75 Mg Tab 75 MG PO DAILY for Blood Clot Prevention, #30 TAB [address] (Cymbalta DR) 30 Mg Capdr 30 MG PO DAILY@1600, #30 CAP [address] (Cymbalta DR) 60 Mg Capdr 60 MG PO DAILY, #30 CAP 0 Refills Fluticasone-Vilanterol Inh (Breo Ellipta Inh) 200-25 Mcg/Act Inh 1 PUFF INH DAILY, #1 INHALER 0 Refills Use daily at the same time. Oxycodone (Oxycodone) 15 Mg Tab 30 PO Q4H PRN for PAIN, TAB 0 Refills Oxycodone ER (Oxycontin) 10 Mg Tab 20 PO Q12HR for Pain Management, TAB 0 Refills Pioglitazone (Actos) 45 Mg Tab 45 MG PO DAILY for Blood Sugar Management, #30 TAB 0 Refills Pregabalin (Lyrica) 25 Mg Cap 100 PO QID, #60 CAP 0 Refills Ramipril (Altace) 5 Mg Cap 5 MG PO DAILY, #30 CAP 0 Refills Simvastatin (Simvastatin) 40 Mg Tab 40 MG PO HS for Cholesterol Management, #30 TAB 0 Refills Sitagliptin (Januvia) 100 Mg Tab 100 MG PO DAILY for Blood Sugar Management, #30 TAB 0 Refills Sitagliptin-Metformin (Janumet) 50-1,000 Mg Tab 1 TAB PO BID for Blood Sugar Management, #60 TAB 0 Refills Georgia Elias MD Sep 08, 2017 08:43
[2017-09-08] MEDS: DOCUSATE SODIUM 50 MG/SENNA 8.6 MG TAB PO SCH (09:00)
[2017-09-08] MEDS: FAMOTIDINE 20 MG TAB PO SCH (09:00)
[2017-09-08] MEDS: SODIUM CHLORIDE 0.9% FLUSH 10 ML FLUSH IV FLUSH SCH (09:00)
[2017-09-08] MEDS ORDERED: FLUTICASONE 200 MCG/VILANTEROL 25 MCG INHALER INH SCH (09:00)
[2017-09-08] MEDS ORDERED: CLOPIDOGREL 75 MG TAB PO SCH (09:00)
[2017-09-08] MEDS ORDERED: PRAVASTATIN SOD 40 MG TAB PO SCH (09:00)
[2017-09-08] MEDS ORDERED: oxyCODONE HCL 20 MG CONTROLLED RELEASE TAB PO SCH (09:00)
[2017-09-08 09:11] LABS: BANDS 2 % (0-6); LYMPHOCYTES 12 % (9-44); METAMYELOCYTES 2 % (0-1); MONOCYTES 2 % (0-8); MYELOCYTES 1 % (0-0); NEUTROPHIL # MANUAL DIFF 9.5 TH/MM3 (1.8-7.7); POLYS (SEG NEUTROPHILS) 81 % (16-70)
[2017-09-08] MEDS ORDERED: ALBUAER3 INH (12:37)
[2017-09-08] MEDS ORDERED: cefTRIAXone INJ 1,000 MG in SODIUM CHLORIDE 0.9% INJ 100 ML IV SCH (15:00)
[2017-09-08] MEDS ORDERED: AZITHROMYCIN INJ 500 MG in SODIUM CHLOR 0.9% 250 ML INJ 250 ML IV SCH (16:00)
--- NOTE | 2017-09-08 17:41 | EKG ---
Date Performed: 09/07/2017 Time Performed: 13:25:26 PTAGE: 67 years EKG: SINUS TACHYCARDIA ABNORMAL RHYTHM ECG INTERPRETATION BASED ON A DEFAULT AGE OF 40 YEARS PREVIOUS TRACING 09/02/17 @ 23.32 Since previous tracing, no significant change noted DOCTOR: Anjel Davis Interpretating Date/Time 09/08/2017 17:45:15
== END 2017-09-08 13:48 | disposition home or self-care (01) | DRG 190 ==
LOC: PHED 13:20 → PHEDA 15:22 → PH3B 15:52
PROVIDERS: ADMIT Hospitalist; ATTEND Hospitalist
DX: J44.1 Chronic obstructive pulmonary disease with (acute) exacerbation (principal); J18.9 Pneumonia, unspecified organism; E11.51 Type 2 diabetes mellitus with diabetic peripheral angiopathy without gangrene; J44.0 Chronic obstructive pulmonary disease with (acute) lower respiratory infection; I10 Essential (primary) hypertension; I25.10 Atherosclerotic heart disease of native coronary artery without angina pectoris; G89.29 Other chronic pain; M54.9 Dorsalgia, unspecified; K21.9 Gastro-esophageal reflux disease without esophagitis; F17.210 Nicotine dependence, cigarettes, uncomplicated; Z79.84 Long term (current) use of oral hypoglycemic drugs; Z86.718 Personal history of other venous thrombosis and embolism; Z88.5 Allergy status to narcotic agent; Z95.5 Presence of coronary angioplasty implant and graft
CPT/HCPCS: 71275; 80048; 83605; 83735; 84484; 85007; 85025; 85027; 85610; 85730; 87040; 93005; 94618; 94640; 94664; J0456; J0696; J2930; J7030; J7050; Q9967